=== PATIENT | male | born 1980 | race Caucasian/White ===

== ENCOUNTER 2021-11-25 08:17 | Outpatient (CLI) | payer OTHER | END 2021-11-25 08:41 | disposition home or self-care (01) | LOC: TOM 08:17 | DX: J20.9 Acute bronchitis, unspecified (principal) ==

== ENCOUNTER 2021-12-23 11:10 | Outpatient (CLI) | payer OTHER | END 2021-12-23 11:24 | disposition home or self-care (01) | LOC: LAB 11:10 | DX: Z11.4 Encounter for screening for human immunodeficiency virus [HIV] (principal); Z00.00 Encounter for general adult medical examination without abnormal findings ==

== ENCOUNTER 2022-04-24 11:25 | Outpatient (CLI) | payer OTHER | END 2022-04-24 11:28 | disposition home or self-care (01) | LOC: LAB 11:25 | DX: N39.0 Urinary tract infection, site not specified (principal); E78.9 Disorder of lipoprotein metabolism, unspecified; E29.1 Testicular hypofunction ==

== ENCOUNTER 2022-04-24 11:27 | Outpatient (CLI) | payer OTHER | END 2022-04-24 13:06 | disposition home or self-care (01) | LOC: SONOGRAMA 11:27 | PROVIDERS: ATTEND Urology | DX: N20.0 Calculus of kidney (principal); N40.1 Benign prostatic hyperplasia with lower urinary tract symptoms ==

== ENCOUNTER → 2022-07-16 07:48 | Outpatient (CLI) | payer OTHER | END | disposition home or self-care (01) | LOC: LAB 07:48 | PROVIDERS: ATTEND Urology | DX: I10 Essential (primary) hypertension (principal); E78.00 Pure hypercholesterolemia, unspecified; N39.0 Urinary tract infection, site not specified; R73.09 Other abnormal glucose; N40.1 Benign prostatic hyperplasia with lower urinary tract symptoms; E29.1 Testicular hypofunction ==

== ENCOUNTER 2022-07-16 11:53 | Outpatient (CLI) | payer OTHER | END 2022-07-16 12:05 | disposition home or self-care (01) | LOC: RAD 11:53 | PROVIDERS: ATTEND Family Medicine | DX: J01.00 Acute maxillary sinusitis, unspecified (principal); I86.1 Scrotal varices ==

== ENCOUNTER → 2022-10-15 06:13 | Outpatient (CLI) | payer OTHER | END | disposition home or self-care (01) | LOC: LAB 06:13 | PROVIDERS: ATTEND Urology | DX: I10 Essential (primary) hypertension (principal); E78.00 Pure hypercholesterolemia, unspecified; N39.0 Urinary tract infection, site not specified; R73.09 Other abnormal glucose; N40.1 Benign prostatic hyperplasia with lower urinary tract symptoms; E29.1 Testicular hypofunction; L50.8 Other urticaria; T78.3XXA Angioneurotic edema, initial encounter; E78.5 Hyperlipidemia, unspecified; E07.9 Disorder of thyroid, unspecified; M25.50 Pain in unspecified joint; E23.0 Hypopituitarism ==

== ENCOUNTER 2022-12-08 08:56 | Outpatient (CLI) | payer OTHER | END 2022-12-08 09:01 | disposition home or self-care (01) | LOC: SONOGRAMA 08:56 | DX: K21.9 Gastro-esophageal reflux disease without esophagitis (principal); K64.4 Residual hemorrhoidal skin tags; K83.8 Other specified diseases of biliary tract; R12 Heartburn ==

== ENCOUNTER 2022-12-16 11:08 | Outpatient (CLI) | payer OTHER | END 2022-12-16 12:16 | disposition home or self-care (01) | LOC: LAB 11:08 | DX: I10 Essential (primary) hypertension (principal); E78.00 Pure hypercholesterolemia, unspecified; N39.0 Urinary tract infection, site not specified; R73.03 Prediabetes; N40.1 Benign prostatic hyperplasia with lower urinary tract symptoms; E29.1 Testicular hypofunction ==

== ENCOUNTER 2023-03-24 09:54 | Outpatient (CLI) | payer OTHER | END 2023-03-24 10:00 | disposition home or self-care (01) | LOC: LAB 09:54 | DX: E55.9 Vitamin D deficiency, unspecified (principal); M25.50 Pain in unspecified joint; E03.9 Hypothyroidism, unspecified; E78.5 Hyperlipidemia, unspecified; M54.59 Other low back pain; R73.9 Hyperglycemia, unspecified; M06.4 Inflammatory polyarthropathy; H04.123 Dry eye syndrome of bilateral lacrimal glands; M32.9 Systemic lupus erythematosus, unspecified; I10 Essential (primary) hypertension; E78.00 Pure hypercholesterolemia, unspecified; N39.0 Urinary tract infection, site not specified; R73.03 Prediabetes; N40.1 Benign prostatic hyperplasia with lower urinary tract symptoms; E29.1 Testicular hypofunction; D64.9 Anemia, unspecified; R10.9 Unspecified abdominal pain; R07.9 Chest pain, unspecified; E11.9 Type 2 diabetes mellitus without complications; I50.22 Chronic systolic (congestive) heart failure; E66.9 Obesity, unspecified ==

== ENCOUNTER 2023-03-24 10:55 | Outpatient (CLI) | payer OTHER | END 2023-03-24 11:10 | disposition home or self-care (01) | LOC: TOM 10:55 | DX: J32.4 Chronic pansinusitis (principal); M79.641 Pain in right hand; M79.642 Pain in left hand ==

== ENCOUNTER 2023-05-24 10:24 | Outpatient (CLI) | payer OTHER | END 2023-05-24 10:26 | disposition home or self-care (01) | LOC: LAB 10:24 | DX: E78.2 Mixed hyperlipidemia (principal); E06.3 Autoimmune thyroiditis ==

== ENCOUNTER 2023-06-11 14:54 | Outpatient (CLI) | payer OTHER | END 2023-06-11 15:00 | disposition home or self-care (01) | LOC: LAB 14:54 | DX: K21.9 Gastro-esophageal reflux disease without esophagitis (principal); K64.4 Residual hemorrhoidal skin tags; K83.8 Other specified diseases of biliary tract; R12 Heartburn; Z12.11 Encounter for screening for malignant neoplasm of colon ==

== ENCOUNTER 2023-06-28 12:18 | Outpatient (CLI) | payer OTHER | END 2023-06-28 12:32 | disposition home or self-care (01) | LOC: LAB 12:18 | DX: E78.5 Hyperlipidemia, unspecified (principal); R10.13 Epigastric pain; D50.0 Iron deficiency anemia secondary to blood loss (chronic); K90.0 Celiac disease; I10 Essential (primary) hypertension; E78.00 Pure hypercholesterolemia, unspecified; N39.0 Urinary tract infection, site not specified; R73.03 Prediabetes; N40.1 Benign prostatic hyperplasia with lower urinary tract symptoms; E29.1 Testicular hypofunction ==

== ENCOUNTER 2023-08-10 11:55 | Outpatient (CLI) | payer OTHER ==
[2023-08-10 13:01] LABS: HEMATOCRIT 43.8 % (39.0-48.0); HEMOGLOBIN 14.4 g/dL (13-16.00); MEAN CELL VOLUME 92.9 fL (80.0-100.00); MEAN CORPUSCULAR HEMOGLOBIN 30.6 pg (27.00-32.0); MEAN CORPUSCULAR HGB CONC 32.9 g/dl (32.0-36.0); PLATELET COUNT 307 K/uL (150-450); RED BLOOD COUNT 4.72 M/uL (4.00-6.00); RED CELL DISTRIBUTION WIDTH 12.5 % (11.5-14.5)
[2023-08-10 13:11] LABS: URINE APPEARANCE Clear; URINE BILIRRUBIN Negative (NEGATIVE); URINE BLOOD Negative; URINE COLOR Yellow; URINE GLUCOSE Negative (NEGATIVE); URINE LEUKOCYTE Negative; URINE NITRATE Negative; URINE PROTEIN Negative (NEGATIVE); URINE UROBILINOGEN 0.2 E.U./dl
[2023-08-10 13:14] LABS: URINE EPITHELIAL CELLS 2.7 uL (0.0-38.8); URINE RBC 4.1 uL (0.0-20.8); URINE WBC 2.3 uL (0.0-23.2)
[2023-08-10 13:35] LABS: ALBUMIN 4.2 gm/dL (3.4-5.0); BILIRUBIN TOTAL 0.64 mg/dL (0.3-1.2); CALCIUM 9.2 mg/dL (8.5-10.1); CHOL HDL RATIO 5.2 (0-5.0); CREATININE SERUM 1.2 mg/dL (0.70-1.30); GFR 66.72; GLOBULINA 3.4 G/DL (2.4-3.5); POTASSIUM 4.3 mEq/L (3.5-5.1); PROSTATIC SPECIFIC ANTIGEN 0.493 NG/ML (0.010-4.00); TOTAL PROTEIN 7.6 gm/dL (6.4-8.2)
== END 2023-08-10 11:56 | disposition home or self-care (01) ==
LOC: LAB 11:55
DX: I10 Essential (primary) hypertension (principal); N39.0 Urinary tract infection, site not specified; R73.03 Prediabetes; N40.1 Benign prostatic hyperplasia with lower urinary tract symptoms; E29.1 Testicular hypofunction

== ENCOUNTER → 2023-09-14 12:28 | Outpatient (CLI) | payer OTHER ==
[2023-09-14 13:28] LABS: HEMATOCRIT 43.2 % (39.0-48.0); HEMOGLOBIN 15.1 g/dL (13-16.00); MEAN CORPUSCULAR HEMOGLOBIN 31.8 pg (27.00-32.0); PLATELET COUNT 284 K/uL (150-450); RED BLOOD COUNT 4.74 M/uL (4.00-6.00)
[2023-09-14 14:11] LABS: ALBUMIN 4.2 gm/dL (3.4-5.0); BILIRUBIN TOTAL 0.6 mg/dL (0.3-1.2); CALCIUM 9.4 mg/dL (8.5-10.1); CREATININE SERUM 1.07 mg/dL (0.70-1.30); GFR 76.16; GLOBULINA 3.2 G/DL (2.4-3.5); POTASSIUM 4.15 mEq/L (3.5-5.1); TOTAL PROTEIN 7.4 gm/dL (6.4-8.2); TSH 1.26 uIU/mL (0.358-3.74)
[2023-09-14 14:57] LABS: FOLIC ACID 15.88 ng/ml (4.78-20)
== END | disposition home or self-care (01) ==
LOC: LAB 12:28
PROVIDERS: ATTEND Psychiatry & Neurology Neurology
DX: D50.9 Iron deficiency anemia, unspecified (principal); E03.9 Hypothyroidism, unspecified; D51.3 Other dietary vitamin B12 deficiency anemia; E72.11 Homocystinuria; E11.9 Type 2 diabetes mellitus without complications

== ENCOUNTER 2023-09-15 08:08 | Outpatient (CLI) | payer OTHER | END 2023-09-15 08:25 | disposition home or self-care (01) | LOC: RAD 08:08 | PROVIDERS: ATTEND Psychiatry & Neurology Neurology | DX: G44.1 Vascular headache, not elsewhere classified (principal); R10.13 Epigastric pain | CPT/HCPCS: 70553 ==

== ENCOUNTER 2024-07-25 14:21 | Outpatient (CLI) | payer OTHER ==
[2024-07-25 15:09] LABS: URINE APPEARANCE Clear; URINE BILIRRUBIN Negative (NEGATIVE); URINE BLOOD Negative; URINE COLOR Yellow; URINE GLUCOSE Negative (NEGATIVE); URINE KETONE Negative (NEGATIVE); URINE LEUKOCYTE Negative; URINE NITRATE Negative; URINE PROTEIN Negative (NEGATIVE); URINE UROBILINOGEN 0.2 E.U./dl
[2024-07-25 15:10] LABS: HEMATOCRIT 41.5 % (39.0-48.0); HEMOGLOBIN 14.7 g/dL (13-16.00); MEAN CELL VOLUME 91.2 fL (80.0-100.00); MEAN CORPUSCULAR HEMOGLOBIN 32.4 pg (27.00-32.0); MEAN CORPUSCULAR HGB CONC 35.5 g/dl (32.0-36.0); PLATELET COUNT 313 K/uL (150-450); RED BLOOD COUNT 4.55 M/uL (4.00-6.00); RED CELL DISTRIBUTION WIDTH 12.9 % (11.5-14.5)
[2024-07-25 15:12] LABS: URINE BACTERIA 6.2 uL (0.0-1933)
[2024-07-25 15:16] LABS: URINE EPITHELIAL CELLS 1.3 uL (0.0-38.8); URINE RBC 1.8 uL (0.0-20.8); URINE WBC 1.7 uL (0.0-23.2)
[2024-07-25 16:11] LABS: ALBUMIN 4.3 gm/dL (3.4-5.0); BILIRUBIN TOTAL 0.53 mg/dL (0.3-1.2); CALCIUM 9.2 mg/dL (8.5-10.1); CHOL HDL RATIO 4.9 (0-5.0); CREATININE SERUM 1.11 mg/dL (0.70-1.30); GFR 72.65; GLOBULINA 3.2 G/DL (2.4-3.5); POTASSIUM 4.07 mEq/L (3.5-5.1); PROSTATIC SPECIFIC ANTIGEN 0.553 NG/ML (0.010-4.00); TOTAL PROTEIN 7.5 gm/dL (6.4-8.2)
== END 2024-07-25 14:28 | disposition home or self-care (01) ==
LOC: LAB 14:21
PROVIDERS: ATTEND Internal Medicine Rheumatology
DX: M79.7 Fibromyalgia (principal); Z79.1 Long term (current) use of non-steroidal anti-inflammatories (NSAID); E55.9 Vitamin D deficiency, unspecified; I10 Essential (primary) hypertension; E78.00 Pure hypercholesterolemia, unspecified; N39.0 Urinary tract infection, site not specified; R73.03 Prediabetes; N40.1 Benign prostatic hyperplasia with lower urinary tract symptoms

== ENCOUNTER → 2025-01-05 11:52 | Outpatient (CLI) | payer OTHER ==
[2025-01-05 12:54] LABS: PH,URINE 5.5 (5.0-8.0); URINE APPEARANCE Clear; URINE BILIRRUBIN Negative (NEGATIVE); URINE BLOOD Negative; URINE COLOR Yellow; URINE GLUCOSE Negative (NEGATIVE); URINE KETONE Negative (NEGATIVE); URINE LEUKOCYTE Negative; URINE NITRATE Negative; URINE PROTEIN Negative (NEGATIVE); URINE UROBILINOGEN 0.2 E.U./dl
[2025-01-05 12:57] LABS: URINE EPITHELIAL CELLS 3.7 uL (0.0-38.8); URINE RBC 2.6 uL (0.0-20.8); URINE WBC 2.3 uL (0.0-23.2)
[2025-01-05 13:02] LABS: HEMATOCRIT 43.9 % (39.0-48.0); HEMOGLOBIN 15.4 g/dL (13-16.00); MEAN CELL VOLUME 91.6 fL (80.0-100.00); MEAN CORPUSCULAR HEMOGLOBIN 32.1 pg (27.00-32.0); PLATELET COUNT 329 K/uL (150-450); RED CELL DISTRIBUTION WIDTH 12.9 % (11.5-14.5)
[2025-01-05 13:27] LABS: URINE BACTERIA 2.4 uL (0.0-1933); URINE CAST 0.14 uL (0.0-1.40)
[2025-01-05 13:54] LABS: ALBUMIN 4.1 gm/dL (3.4-5.0); BILIRUBIN TOTAL 0.57 mg/dL (0.3-1.2); CALCIUM 9.5 mg/dL (8.5-10.1); CREATININE SERUM 1.08 mg/dL (0.70-1.30); GFR 74.98; GLOBULINA 3.2 G/DL (2.4-3.5); POTASSIUM 4.44 mEq/L (3.5-5.1); TOTAL PROTEIN 7.3 gm/dL (6.4-8.2)
== END | disposition home or self-care (01) ==
LOC: LAB 11:52
PROVIDERS: ATTEND Internal Medicine Rheumatology
DX: M79.7 Fibromyalgia (principal); Z79.1 Long term (current) use of non-steroidal anti-inflammatories (NSAID); E55.9 Vitamin D deficiency, unspecified; N52.9 Male erectile dysfunction, unspecified

== ENCOUNTER 2025-05-29 12:34 | Outpatient (CLI) | payer OTHER ==
[2025-05-29 13:20] LABS: BASO % 0.7 % (0.1-1.2); EOS # 0.18 (0.04-0.54); EOS % 3.0 % (0.7-7.0); LYMPH # 1.89 (1.18-3.74); LYMPH % 31.0 % (19.3-53.1); MEAN PLATELET VOLUME 8.70 fl (9.4-12.4); MONO # 0.37 (0.24-0.82); MONO % 6.1 % (4.7-12.5); NEUT # 3.56 (1.56-6.13); NEUT % 58.4 % (34.0-71.1); RED CELL DISTRIBUTION WIDTH 11.8 % (11.6-14.4)
[2025-05-29 14:20] LABS: ALT/SGPT 63.0 U/L (12-78); AST/SGOT 24.0 U/L (15-37); BILIRUBIN TOTAL 0.51 mg/dL (0.3-1.2); BUN CREA RATIO 11.0 (7.0-25.0); CREATININE SERUM 1.0 mg/dL (0.70-1.30); GFR 81.55; GLOBULINA 3.0 G/DL (2.4-3.5); GLUCOSE FASTING 100.0 mg/dL (65-100); OSMOLALITY SERUM 283.0 MOSM/KG (275-295); T4 FREE 0.7 NG/ML (0.76-1.46); TSH 1.33 uIU/mL (0.358-3.74)
[2025-05-29 15:09] LABS: ob NEGATIVE (NEGATIVE)
[2025-05-31 05:07] LABS: HEPATITIS C VIRUS ANTIBODY Non Reactive (Non Reactive)
== END 2025-05-29 12:37 | disposition home or self-care (01) ==
LOC: LAB 12:34
DX: R94.5 Abnormal results of liver function studies (principal); Z12.11 Encounter for screening for malignant neoplasm of colon; E07.89 Other specified disorders of thyroid; N52.9 Male erectile dysfunction, unspecified